=== PATIENT | female | born 1985 | race Caucasian/White ===

== ENCOUNTER 2018-07-24 11:28 | Emergency (ER) | payer OTHER ==
[~2018-07-24] VITALS: Ht 167.6 cm; Wt 69.5 kg
[2018-07-24 13:54] VITALS: BP 115/69
== END 2018-07-24 14:02 | disposition home or self-care (01) ==
LOC: EMS 11:30
DX: S13.4XXA Sprain of ligaments of cervical spine, initial encounter (principal); S70.01XA Contusion of right hip, initial encounter; R07.2 Precordial pain; G43.909 Migraine, unspecified, not intractable, without status migrainosus; V43.52XA Car driver injured in collision with other type car in traffic accident, initial encounter; Y93.89 Activity, other specified; Y92.89 Other specified places as the place of occurrence of the external cause; Y99.8 Other external cause status
CPT/HCPCS: 99284

== ENCOUNTER 2019-12-17 22:58 | Emergency (ER) | payer BC, MEDICARE, OTHER ==
[~2019-12-17] VITALS: Ht 167.6 cm; Wt 72.7 kg
[2019-12-17 23:10] VITALS: BP 113/64
[2019-12-17] MEDS ORDERED: ACETAMINOPHEN 325 MG TABLET PO ONE (23:30)
[2019-12-17] MEDS ORDERED: IBUPROFEN 400 MG TABLET PO ONE (23:30)
[2019-12-17 23:59] LABS: INFLUENZA TYPE A NEGATIVE FOR TYPE A (NEGATIVE); INFLUENZA TYPE B NEGATIVE FOR TYPE B (NEGATIVE)
[2019-12-18] MEDS ORDERED: OSELTAMIVIR PHOSPHATE 75 MG CAPSULE PO ONE (00:30)
== END 2019-12-18 00:39 | disposition home or self-care (01) ==
LOC: EMS 23:00
DX: O99.511 Diseases of the respiratory system complicating pregnancy, first trimester (principal); M79.10 Myalgia, unspecified site; G43.909 Migraine, unspecified, not intractable, without status migrainosus; Z3A.01 Less than 8 weeks gestation of pregnancy
CPT/HCPCS: 87804

== ENCOUNTER 2020-10-24 21:31 | Emergency (ER) | payer BC, MEDICARE ==
[~2020-10-24] VITALS: Ht 167.6 cm; Wt 72.7 kg
[2020-10-24 21:43] LABS: COVID AG,FIA SOURCE NASOPHARYNGEAL
[2020-10-24 21:52] VITALS: BP 130/78
== END 2020-10-24 22:00 | disposition home or self-care (01) ==
LOC: EMS 21:34
DX: Z20.828 Contact with and (suspected) exposure to other viral communicable diseases (principal)
CPT/HCPCS: 87426

== ENCOUNTER 2021-07-11 09:42 | Emergency (ER) | payer MEDICAID, MEDICARE ==
[~2021-07-11] VITALS: Ht 167.6 cm; Wt 65.9 kg
[2021-07-11] MEDS ORDERED: MAG HYDROX/AL HYDROX/SIMETH 30 ML SUSP UDCUP PO ONE (10:15)
[2021-07-11] MEDS ORDERED: SODIUM CHLORIDE 0.9% 1,000 ML IV ONE (10:15)
[2021-07-11 10:47] LABS: COVID AG,FIA SOURCE NASAL SWAB
[2021-07-11 11:01] LABS: BASOPHILS % (AUTO) 0.3 % (0.0-2.0); EOSINOPHILS % (AUTO) 0.4 % (1.0-6.0); HEMATOCRIT 41.3 % (36-46); LYMPHOCYTES # (AUTO) 1.1 K/uL (1.0-4.8); LYMPHOCYTES % (AUTO) 12.6 % (22.0-44.0); MEAN CORPUSCULAR HEMOGLOBIN 31.4 pg (26.0-34.0); MEAN CORPUSCULAR VOLUME 92 fL (80-100); MONOCYTES # (AUTO) 0.7 K/uL (0.1-1.0); MONOCYTES % (AUTO) 7.3 % (2.0-9.0); NEUTROPHILS # (AUTO) 7.2 K/uL (1.8-7.7); NEUTROPHILS % (AUTO) 79.4 % (40.0-70.0); PLATELET COUNT (AUTO) 269 K/uL (150-450); RED BLOOD CELL COUNT(AUTO) 4.47 MIL/uL (4.00-5.20); RED CELL DISTRIBUTION WIDTH 12.7 % (11.5-14.5)
[2021-07-11 11:22] LABS: ALANINE AMINOTRANSFERASE 52 U/L (12-78); ALBUMIN 3.4 g/dL (3.4-5.0); ALKALINE PHOSPHATASE 98 U/L (46-116); ANION GAP 11 mmol/L (8-16); ASPARTATE AMINOTRANSFERASE 30 U/L (15-37); BILIRUBIN,TOTAL 0.6 mg/dL (0.1-1.0); CARBON DIOXIDE 23 mmol/L (22-29); CHLORIDE 104 mmol/L (98-107); CREATININE 0.56 mg/dL (0.60-1.30); GLOMERULAR FILTR. RATE CALC > 60 mL/min (>60); GLUCOSE,RANDOM 88 mg/dL (70-110); LIPASE 76 U/L (73-393); POTASSIUM 3.6 mmol/L (3.5-5.1); SODIUM SERUM 138 mmol/L (136-145); TOTAL PROTEIN, SERUM 7.2 g/dL (6.4-8.2); UREA NITROGEN, BLOOD 10 mg/dL (7-18)
[2021-07-11 11:28] LABS: CALCIUM, TOTAL 8.7 mg/dL (8.8-10.5)
[2021-07-11 11:30] LABS: APPEARANCE,URINE CLEAR (CLEAR); BILIRUBIN,URINE NEGATIVE (NEGATIVE); GLUCOSE, URINE (UA) NEGATIVE (NEGATIVE); KETONES,URINE NEGATIVE (NEGATIVE); LEUKOCYTE ESTERASE ,URINE NEGATIVE (NEGATIVE); NITRATE,URINE NEGATIVE (NEGATIVE); OCCULT BLOOD,URINE NEGATIVE (NEGATIVE); PROTEIN,URINE NEGATIVE (NEGATIVE)
[2021-07-11 11:32] LABS: BACTERIA,URINE None Seen /HPF (None Seen); RBC,URINE None Seen /HPF (0-2); WBC,URINE None Seen /HPF (0-5)
[2021-07-11 11:45] VITALS: BP 110/70
== END 2021-07-11 11:59 | disposition home or self-care (01) ==
LOC: EMS 09:53
DX: O99.351 Diseases of the nervous system complicating pregnancy, first trimester (principal); O21.9 Vomiting of pregnancy, unspecified; G43.909 Migraine, unspecified, not intractable, without status migrainosus; Z20.822 Contact with and (suspected) exposure to COVID-19; Z3A.08 8 weeks gestation of pregnancy
CPT/HCPCS: 36415; 80053; 81001; 83690; 85025; 87426; 96360; 99283; J7030; U0003

== ENCOUNTER 2024-09-01 18:55 | Emergency (ER) | payer MEDICAID ==
[~2024-09-01] VITALS: Ht 165.1 cm; Wt 68.0 kg
[2024-09-01 19:03] VITALS: TEMP 98.4
[2024-09-01] MEDS: SODIUM CHLORIDE 0.9% 1,000 ML IV ONE (19:37)
[2024-09-01] MEDS: MECLIZINE HCL 25 MG TABLET PO ONE (19:38)
[2024-09-01] MEDS: ONDANSETRON HCL 4 MG/2 ML VIAL IVP ONE (19:38)
[2024-09-01 20:00] LABS: BILIRUBIN,DIRECT 0.3 mg/dL (0.00-0.20); BILIRUBIN,TOTAL 1.1 mg/dL (0.1-1.0); MAGNESIUM 2.1 mg/dL (1.80-2.40); PHOSPHORUS 3.9 mg/dL (2.5-4.9); TOTAL PROTEIN, SERUM 7.3 g/dL (6.4-8.2)
[2024-09-01 20:35] LABS: BASOPHILS % (AUTO) 0.6 % (0.0-2.0); EOSINOPHILS % (AUTO) 0.6 % (1.0-6.0); HEMATOCRIT 42.6 % (36-46); HEMOGLOBIN 14.4 g/dL (12.0-16.0); LYMPHOCYTES # (AUTO) 1.4 K/uL (1.0-4.8); LYMPHOCYTES % (AUTO) 22.1 % (22.0-44.0); MEAN CORPUSCULAR HEMOGLOBIN 31.6 pg (26.0-34.0); MEAN CORPUSCULAR HGB CONC 33.8 G/dL (31.0-37.0); MEAN CORPUSCULAR VOLUME 94 fL (80-100); MONOCYTES # (AUTO) 0.4 K/uL (0.1-1.0); MONOCYTES % (AUTO) 6.2 % (2.0-9.0); NEUTROPHILS # (AUTO) 4.4 K/uL (1.8-7.7); NEUTROPHILS % (AUTO) 70.5 % (40.0-70.0); PLATELET COUNT (AUTO) 294 K/uL (150-450); RED BLOOD CELL COUNT(AUTO) 4.55 MIL/uL (4.00-5.20); RED CELL DISTRIBUTION WIDTH 13.3 % (11.5-14.5); WHITE BLOOD COUNT (AUTO) 6.2 K/uL (4.5-11.0)
[2024-09-01 20:36] LABS: CARBON DIOXIDE 28 mmol/L (22-29); CHLORIDE 101 mmol/L (98-107); POTASSIUM 3.9 mmol/L (3.5-5.1); SODIUM SERUM 139 mmol/L (136-145)
[2024-09-01 20:37] LABS: ANION GAP 10 mmol/L (8-16); CALCIUM, TOTAL 9.3 mg/dL (8.8-10.5); CREATININE 0.71 mg/dL (0.60-1.30); GLOMERULAR FILTR. RATE CALC > 60 mL/min (>60); GLUCOSE,RANDOM 86 mg/dL (70-110); UREA NITROGEN, BLOOD 11 mg/dL (7-18)
[2024-09-01 20:47] LABS: TROPONIN I-HIGH SENSITIVITY Less Than 4 ng/L (<51)
[2024-09-01] MEDS: METOCLOPRAMIDE HCL 5 MG/ML 2 ML VIAL IVP ONE (21:41)
[2024-09-01] MEDS: DiphenhydrAMINE HCL 50 MG/ML VIAL IVP ONE (21:41)
[2024-09-01] MEDS: KETOROLAC TROMETHAMINE 30 MG/ML VIAL IVP ONE (21:41)
[2024-09-02] MEDS ORDERED: ACET-2080 PO (00:15)
[2024-09-02] MEDS ORDERED: MECL-134 PO (00:15)
[2024-09-02] MEDS ORDERED: ONDA-104 PO (00:15)
[2024-09-02 00:17] VITALS: BP 107/63; PULSE 79; RESP 16; O2SAT 99
[2024-09-02] MEDS: ACETAMINOPHEN/CODEINE 300-30 MG TABLET PO ONE (00:24)
[2024-09-02] MEDS: MECLIZINE HCL 25 MG TABLET PO ONE (00:24)
== END 2024-09-02 00:32 | disposition home or self-care (01) ==
LOC: EMS 18:56
DX: G43.909 Migraine, unspecified, not intractable, without status migrainosus (principal); R42 Dizziness and giddiness
CPT/HCPCS: 99285; 96374; 96375; 70450; 96361; 80048; 80076; 83690; 83735; 84100; 84484; 84703; 85025; 36415; 93005; J1200; J1885; J2765; J2405; J7030